=== PATIENT | female | born 1950 | race Caucasian/White ===

== ENCOUNTER 2018-03-29 14:28 | Emergency (ER) | payer MEDICARE, OTHER ==
[~2018-03-29] VITALS: Ht 162.6 cm; Wt 136.1 kg
[~2018-03-29 14:28] MED LIST: ALEN70 PO; AMLO5 PO; BENICAR; CARB200; CARB200 PO; CYAN1000I IM; HYDCHL25; LEVE500 PO; NAPR500; NAPR500 PO; OLME20 PO; OLME40 PO; PRIM250; PRIM250 PO; PRIMIDONE 250 MG PO; SIMV5 PO; TIMO.5OPS OD; TRAV.004OP OD; VITAMIN B 12; [UNRECOGNIZED DRUG - OTHER]
[2018-03-29 16:19] LABS: BASOPHILS ABSOLUTE AUTO 0.07 K/mm3 (0.00-0.23); BASOPHILS PERCENT AUTO 1 % (0-2); EOSINOPHILS ABSOLUTE AUTO 0.21 K/mm3 (0.00-0.68); EOSINOPHILS PERCENT AUTO 3 % (0-6); Hematocrit 40.5 % (33.0-51.0); Hemoglobin 13.4 g/dL (11.5-16.0); IMMATURE GRAN ABSOLUTE AUTO 0.03 K/mm3 (0.00-0.10); IMMATURE GRAN PERCENT AUTO 0 % (0-1); LYMPHOCYTES ABSOLUTE AUTO 1.46 K/mm3 (0.84-5.20); LYMPHOCYTES PERCENT AUTO 21 % (21-46); MONOCYTES ABSOLUTE AUTO 0.57 K/mm3 (0.16-1.47); MONOCYTES PERCENT AUTO 8 % (4-13); Mean Corpuscular HGB 29.3 pg (26.0-34.0); Mean Corpuscular HGB Conc 33.1 g/dL (31.5-36.5); Mean Corpuscular Volume 88 fL (80-100); Mean Platelet Volume 9.4 fL (9.1-12.4); NEUTROPHILS ABSOLUTE AUTO 4.49 K/mm3 (1.96-9.15); NEUTROPHILS PERCENT AUTO 66 % (41-73); Platelet Count 250 K/mm3 (150-400); RDW Standard Deviation 48.7 fL (35.1-46.3); Red Blood Cell Count 4.58 M/mm3 (3.80-5.20); White Blood Cell Count 6.83 K/mm3 (4.00-11.30)
[2018-03-29 16:42] LABS: Alanine Aminotransfer (ALT/SGP 35 U/L (12-78); Albumin, Blood 3.3 g/dL (3.4-5.0); Albumin/Globulin Ratio 0.8 (0.8-1.8); Alk Phos 95 U/L (50-136); Anion Gap 10 mmol/L (6-16); Aspartate Aminotrans (AST/SGOT 23 U/L (12-37); Bilirubin, Total 0.3 mg/dL (0.1-1.0); Blood Urea Nitrogen 12 mg/dL (8-24); Bun/Creatinine Ratio 16.8 (12.0-20.0); CO2, Blood 28 mmol/L (21-32); Calcium, Blood 9.1 mg/dL (8.5-10.1); Chloride, Blood 93 mmol/L (98-108); Creatinine, Blood 0.72 mg/dL (0.40-1.00); Globulin, Blood 4.1 g/dL (2.2-4.0); Glomerular Filtration Rate >60 (60-); Glucose, Blood 103 mg/dL (70-99); Potassium, Blood 3.4 mmol/L (3.5-5.5); Sodium, Blood 131 mmol/L (136-145); Total Protein, Blood 7.4 g/dL (6.4-8.2); Troponin I <0.015 ng/mL (0.000-0.040)
[2018-03-29 17:47] LABS: Base Excess Venous 6.3 mmol/L; Bicarbonate Venous 30.2 mmol/L (24.0-30.0); PCO2 Venous 34.1 mmHg (38-42); PO2 Venous 194 mmHg (38-42); pH Blood Venous 7.54 (7.34-7.37)
== END 2018-03-29 18:53 | disposition home or self-care (01) ==
LOC: ER 14:28
PROVIDERS: Emergency Medicine
DX: G35 Multiple sclerosis (principal); M25.511 Pain in right shoulder; E66.9 Obesity, unspecified; G40.909 Epilepsy, unspecified, not intractable, without status epilepticus; Z88.8 Allergy status to other drugs, medicaments and biological substances; Z79.899 Other long term (current) drug therapy; Z86.73 Personal history of transient ischemic attack (TIA), and cerebral infarction without residual deficits; Z68.43 Body mass index [BMI] 50.0-59.9, adult
CPT/HCPCS: 36415; 70450; 71045; 80053; 82803; 83880; 84443; 84484; 85025; 93005; 93010; 99285-25; J7030

== ENCOUNTER 2018-08-01 14:49 | Emergency (ER) | payer MEDICARE, OTHER ==
[~2018-08-01] VITALS: Ht 162.6 cm; Wt 140.6 kg
== END 2018-08-01 15:51 | disposition home or self-care (01) ==
LOC: ER 14:49
DX: L98.419 Non-pressure chronic ulcer of buttock with unspecified severity (principal); Z88.8 Allergy status to other drugs, medicaments and biological substances; Z79.899 Other long term (current) drug therapy
CPT/HCPCS: 99283

== ENCOUNTER 2018-09-15 00:14 | Day surgery (SDC) | payer MEDICARE, OTHER | END 2018-09-15 22:58 | disposition home or self-care (01) | LOC: WOUND 00:14 | DX: L89.322 Pressure ulcer of left buttock, stage 2 (principal); G40.909 Epilepsy, unspecified, not intractable, without status epilepticus; G35 Multiple sclerosis; G81.90 Hemiplegia, unspecified affecting unspecified side; I10 Essential (primary) hypertension; E78.5 Hyperlipidemia, unspecified; D64.9 Anemia, unspecified; E66.01 Morbid (severe) obesity due to excess calories; Z91.041 Radiographic dye allergy status; Z91.048 Other nonmedicinal substance allergy status; Z88.8 Allergy status to other drugs, medicaments and biological substances; Z68.43 Body mass index [BMI] 50.0-59.9, adult | CPT/HCPCS: G0463 ==

== ENCOUNTER 2018-09-22 10:00 | Day surgery (SDC) | payer MEDICARE, OTHER | END 2018-09-22 22:39 | disposition home or self-care (01) | LOC: WOUND 10:00 | DX: L89.322 Pressure ulcer of left buttock, stage 2 (principal); G35 Multiple sclerosis; G40.909 Epilepsy, unspecified, not intractable, without status epilepticus; E66.01 Morbid (severe) obesity due to excess calories; Z68.43 Body mass index [BMI] 50.0-59.9, adult | CPT/HCPCS: G0463 ==

== ENCOUNTER 2018-09-29 01:06 | Day surgery (SDC) | payer MEDICARE, OTHER | END 2018-09-29 23:23 | disposition home or self-care (01) | LOC: WOUND 01:06 | DX: L89.322 Pressure ulcer of left buttock, stage 2 (principal); G35 Multiple sclerosis; G81.90 Hemiplegia, unspecified affecting unspecified side; D64.9 Anemia, unspecified; I10 Essential (primary) hypertension; I73.9 Peripheral vascular disease, unspecified; G40.909 Epilepsy, unspecified, not intractable, without status epilepticus | CPT/HCPCS: G0463 ==

== ENCOUNTER 2019-01-16 09:25 | Inpatient (IN) | payer MEDICARE, OTHER ==
[~2019-01-16] VITALS: Ht 162.6 cm; Wt 117.5 kg
[2019-01-16] MEDS ORDERED: Pravastatin Sod80 MG PO (10:38)
[2019-01-16] MEDS ORDERED: LOSARTAN-HCTZ1 EAC1 PO (10:39)
[2019-01-16] MEDS ORDERED: FOLI400 PO (10:41)
[2019-01-16] MEDS ORDERED: POTASSIUM99 MG PO (10:41)
[2019-01-16] MEDS ORDERED: PRIM250 PO (10:42)
[2019-01-16] MEDS ORDERED: DORZOLAMIDE 2%10 ML BOTHEYES (10:50)
[2019-01-16] MEDS ORDERED: Super Calcium600 MG PO (10:51)
[2019-01-16] MEDS ORDERED: VITAMIN D35000 UNI1 PO (10:52)
[2019-01-16] MEDS ORDERED: CRANBERRY450 M1 PO ×2 (10:54→11:57)
[2019-01-16] MEDS ORDERED: Fosamax70 MG PO (10:55)
[2019-01-16] MEDS ORDERED: Citrucel500 MG PO (10:56)
[2019-01-16] MEDS ORDERED: Nystatin15 GM TOP (11:56)
[2019-01-16 14:52] LABS: BASOPHILS ABSOLUTE AUTO 0.05 K/mm3 (0.00-0.23); BASOPHILS PERCENT AUTO 1 % (0-2); EOSINOPHILS ABSOLUTE AUTO 0.23 K/mm3 (0.00-0.68); EOSINOPHILS PERCENT AUTO 3 % (0-6); Hematocrit 32.5 % (33.0-51.0); Hemoglobin 10.8 g/dL (11.5-16.0); IMMATURE GRAN ABSOLUTE AUTO 0.04 K/mm3 (0.00-0.10); IMMATURE GRAN PERCENT AUTO 0 % (0-1); LYMPHOCYTES ABSOLUTE AUTO 1.67 K/mm3 (0.84-5.20); LYMPHOCYTES PERCENT AUTO 19 % (21-46); MONOCYTES ABSOLUTE AUTO 0.56 K/mm3 (0.16-1.47); MONOCYTES PERCENT AUTO 6 % (4-13); Mean Corpuscular HGB 29.4 pg (26.0-34.0); Mean Corpuscular HGB Conc 33.2 g/dL (31.5-36.5); Mean Corpuscular Volume 89 fL (80-100); NEUTROPHILS ABSOLUTE AUTO 6.35 K/mm3 (1.96-9.15); NEUTROPHILS PERCENT AUTO 71 % (41-73); Platelet Count 259 K/mm3 (150-400); RDW Coefficient Variation 13.9 % (11.7-14.2); RDW Standard Deviation 44.9 fL (35.1-46.3); Red Blood Cell Count 3.67 M/mm3 (3.80-5.20)
[2019-01-16 15:17] LABS: Alanine Aminotransfer (ALT/SGP 19 U/L (12-78); Albumin, Blood 3.4 g/dL (3.4-5.0); Albumin/Globulin Ratio 1.1 (0.8-1.8); Alk Phos 111 U/L (50-136); Anion Gap 5 mmol/L (6-16); Aspartate Aminotrans (AST/SGOT 15 U/L (12-37); Bilirubin, Total 0.3 mg/dL (0.1-1.0); Blood Urea Nitrogen 10 mg/dL (8-24); CO2, Blood 32 mmol/L (21-32); Calcium, Blood 9.3 mg/dL (8.5-10.1); Chloride, Blood 94 mmol/L (98-108); Creatinine, Blood 0.77 mg/dL (0.40-1.00); Globulin, Blood 3.1 g/dL (2.2-4.0); Glomerular Filtration Rate >60 (60-); Glucose, Blood 111 mg/dL (70-99); Potassium, Blood 3.5 mmol/L (3.5-5.5); Sodium, Blood 131 mmol/L (136-145); Total Protein, Blood 6.5 g/dL (6.4-8.2)
--- NOTE | 2019-01-17 05:19 | NUR ---
SHIFT SUMMARY: PT A&O X4. VS WNL. SPLINT TO LLE CDI. PULSES PALPABLE. CAP REFILL WNL. PT DENIED PAIN T/O SHIFT. VOIDING IN BEDPAN WITH 2 ASSIST FOR TURNS. DRINKING ADEQUATE AMOUNT OF FLUIDS. ALONSO REG DIET. DENIES N/V. PT HAS HX OF MULTIPLE SCLEROSIS AND IS UNABLE TO MOVE LEFT SIDE. WHEELCHAIR AND BEDREST AT BASELINE. PLAN FOR SURGERY ON FRIDAY.
[2019-01-17 05:35] LABS: BASOPHILS ABSOLUTE AUTO 0.07 K/mm3 (0.00-0.23); BASOPHILS PERCENT AUTO 1 % (0-2); EOSINOPHILS ABSOLUTE AUTO 0.31 K/mm3 (0.00-0.68); EOSINOPHILS PERCENT AUTO 5 % (0-6); Hematocrit 31.1 % (33.0-51.0); Hemoglobin 10.3 g/dL (11.5-16.0); IMMATURE GRAN ABSOLUTE AUTO 0.04 K/mm3 (0.00-0.10); IMMATURE GRAN PERCENT AUTO 1 % (0-1); LYMPHOCYTES ABSOLUTE AUTO 1.77 K/mm3 (0.84-5.20); LYMPHOCYTES PERCENT AUTO 26 % (21-46); MONOCYTES ABSOLUTE AUTO 0.61 K/mm3 (0.16-1.47); MONOCYTES PERCENT AUTO 9 % (4-13); Mean Corpuscular HGB 29.8 pg (26.0-34.0); Mean Corpuscular HGB Conc 33.1 g/dL (31.5-36.5); Mean Corpuscular Volume 90 fL (80-100); Mean Platelet Volume 9.1 fL (9.1-12.4); NEUTROPHILS ABSOLUTE AUTO 3.91 K/mm3 (1.96-9.15); NEUTROPHILS PERCENT AUTO 58 % (41-73); Platelet Count 232 K/mm3 (150-400); RDW Coefficient Variation 13.9 % (11.7-14.2); RDW Standard Deviation 45.6 fL (35.1-46.3); Red Blood Cell Count 3.46 M/mm3 (3.80-5.20); White Blood Cell Count 6.71 K/mm3 (4.00-11.30)
[2019-01-17 05:55] LABS: Anion Gap 6 mmol/L (6-16); Blood Urea Nitrogen 9 mg/dL (8-24); Bun/Creatinine Ratio 12.5 (12.0-20.0); CO2, Blood 30 mmol/L (21-32); Calcium, Blood 8.8 mg/dL (8.5-10.1); Chloride, Blood 93 mmol/L (98-108); Creatinine, Blood 0.72 mg/dL (0.40-1.00); Glomerular Filtration Rate >60 (60-); Glucose, Blood 112 mg/dL (70-99); Potassium, Blood 3.3 mmol/L (3.5-5.5); Sodium, Blood 129 mmol/L (136-145)
--- NOTE | 2019-01-17 13:21 | NUR ---
DR ALEXISTRATE TO SEE PT.
--- NOTE | 2019-01-17 15:52 | NUR ---
DR KRUEGER HERE TO SEE PT. FAMILY HERE.
--- NOTE | 2019-01-17 18:42 | NUR ---
SHIFT SUMMARY PT EATING AND DRINKING WELL. PT BEEN REPOSITIONED AND ASSISTED WITH ADL'S PRN MULT TIMES TODAY. PT MED FOR PAIN PRN. FAMILY IN ROOM WHEN DR KRUEGER WAS IN TO SEE PT. PT USING CALL LIGHT APPR. PT TO BE NPO AFTER MIDNIGHT. HEPARIN HELD TONIGHT PER DR KRUEGER AND DR SWANN.
[2019-01-18 04:09] LABS: BASOPHILS ABSOLUTE AUTO 0.06 K/mm3 (0.00-0.23); BASOPHILS PERCENT AUTO 1 % (0-2); EOSINOPHILS ABSOLUTE AUTO 0.32 K/mm3 (0.00-0.68); EOSINOPHILS PERCENT AUTO 4 % (0-6); Hemoglobin 9.7 g/dL (11.5-16.0); IMMATURE GRAN ABSOLUTE AUTO 0.04 K/mm3 (0.00-0.10); IMMATURE GRAN PERCENT AUTO 1 % (0-1); LYMPHOCYTES ABSOLUTE AUTO 2.25 K/mm3 (0.84-5.20); LYMPHOCYTES PERCENT AUTO 31 % (21-46); MONOCYTES ABSOLUTE AUTO 0.68 K/mm3 (0.16-1.47); MONOCYTES PERCENT AUTO 9 % (4-13); Mean Corpuscular HGB 29.8 pg (26.0-34.0); Mean Corpuscular HGB Conc 33.4 g/dL (31.5-36.5); Mean Corpuscular Volume 89 fL (80-100); NEUTROPHILS ABSOLUTE AUTO 3.97 K/mm3 (1.96-9.15); NEUTROPHILS PERCENT AUTO 54 % (41-73); Platelet Count 230 K/mm3 (150-400); RDW Coefficient Variation 13.4 % (11.7-14.2); RDW Standard Deviation 43.9 fL (35.1-46.3); Red Blood Cell Count 3.26 M/mm3 (3.80-5.20); White Blood Cell Count 7.32 K/mm3 (4.00-11.30)
[2019-01-18 04:24] LABS: Anion Gap 9 mmol/L (6-16); Blood Urea Nitrogen 9 mg/dL (8-24); Bun/Creatinine Ratio 13.6 (12.0-20.0); CO2, Blood 27 mmol/L (21-32); Calcium, Blood 8.2 mg/dL (8.5-10.1); Chloride, Blood 89 mmol/L (98-108); Creatinine, Blood 0.66 mg/dL (0.40-1.00); Glomerular Filtration Rate >60 (60-); Glucose, Blood 109 mg/dL (70-99); Potassium, Blood 3.3 mmol/L (3.5-5.5); Sodium, Blood 125 mmol/L (136-145)
--- NOTE | 2019-01-18 06:14 | NUR ---
SHIFT SUMMARY: PT HAS DONE WELL THIS SHIFT. PAIN MANAGED WITH TYLENOL PER EMAR. PT USING BEDPAN WITH 2 ASSIST. PT ABLE TO ASSIST WITH TURNS. VOIDING WELL. PT HAS BEEN NPO SINCE MIDNIGHT FOR POSSIBLE SURGERY. SPLINT TO LLE CDI. PULSES PALPABLE, CAP REFILL WNL.
--- NOTE | 2019-01-18 19:50 | NUR ---
SHIFT SUMMARY PAIN MANAGED WITH PO PAIN MEDICATION. PT NON-SURGICAL AT THIS TIME. PT IS A 2 PERSON ASSIST TO USE THE BEDPAN . BUCKS TRACTION IN PLACE. VSS. REPORT GIVEN TO LYN PEARSON.
[2019-01-19 04:34] LABS: BASOPHILS ABSOLUTE AUTO 0.06 K/mm3 (0.00-0.23); BASOPHILS PERCENT AUTO 1 % (0-2); EOSINOPHILS ABSOLUTE AUTO 0.26 K/mm3 (0.00-0.68); EOSINOPHILS PERCENT AUTO 4 % (0-6); Hematocrit 27.4 % (33.0-51.0); IMMATURE GRAN ABSOLUTE AUTO 0.05 K/mm3 (0.00-0.10); IMMATURE GRAN PERCENT AUTO 1 % (0-1); LYMPHOCYTES PERCENT AUTO 30 % (21-46); MONOCYTES ABSOLUTE AUTO 0.61 K/mm3 (0.16-1.47); MONOCYTES PERCENT AUTO 9 % (4-13); Mean Corpuscular HGB 28.8 pg (26.0-34.0); Mean Corpuscular HGB Conc 32.8 g/dL (31.5-36.5); Mean Corpuscular Volume 88 fL (80-100); Mean Platelet Volume 9.2 fL (9.1-12.4); NEUTROPHILS ABSOLUTE AUTO 3.89 K/mm3 (1.96-9.15); NEUTROPHILS PERCENT AUTO 56 % (41-73); Platelet Count 255 K/mm3 (150-400); RDW Coefficient Variation 13.8 % (11.7-14.2); RDW Standard Deviation 43.9 fL (35.1-46.3); Red Blood Cell Count 3.13 M/mm3 (3.80-5.20); White Blood Cell Count 6.97 K/mm3 (4.00-11.30)
[2019-01-19 04:49] LABS: Anion Gap 5 mmol/L (6-16); Blood Urea Nitrogen 10 mg/dL (8-24); Bun/Creatinine Ratio 13.6 (12.0-20.0); CO2, Blood 28 mmol/L (21-32); Calcium, Blood 8.5 mg/dL (8.5-10.1); Chloride, Blood 99 mmol/L (98-108); Creatinine, Blood 0.74 mg/dL (0.40-1.00); Glomerular Filtration Rate >60 (60-); Glucose, Blood 114 mg/dL (70-99); Potassium, Blood 3.8 mmol/L (3.5-5.5); Sodium, Blood 132 mmol/L (136-145)
--- NOTE | 2019-01-19 06:41 | NUR ---
SUMMARY PTS DAUGHTER SPOKE WITH DR MAX REGARDING POSSIBILITIES OF OR VS NO OR.SEE DR NOTES.BUCKS TRACTION IN PLACE TONIGHT.NA AND POTASSIUM IMPROVING.
--- NOTE | 2019-01-19 19:49 | NUR ---
SHIFT SUMMARY PT IS STILL UNDECIDED REGARDING SURGERY. PT IS ABLE TO REPOSITION IN BED WELL WITH 2 ASSIST. PT USING BEDPAN FREQUENTLY. PAIN HAS BEEN MINIMAL THIS SHIFT. VSS. REPORT GIVEN TO LYN PEARSON.
--- NOTE | 2019-01-20 04:00 | NUR ---
NO CHANGES SINCE START OF SHIFT. SAFETY MEASURES IN PLACE. HAND OFF GIVEN TO Christopher VITAL RN USING SBAR.
[2019-01-20 04:33] LABS: Hematocrit 28.4 % (33.0-51.0); Hemoglobin 9.1 g/dL (11.5-16.0); Mean Corpuscular HGB 29.2 pg (26.0-34.0); Mean Corpuscular Volume 91 fL (80-100); Mean Platelet Volume 9.5 fL (9.1-12.4); Platelet Count 289 K/mm3 (150-400); RDW Coefficient Variation 14.2 % (11.7-14.2); RDW Standard Deviation 47.6 fL (35.1-46.3); Red Blood Cell Count 3.12 M/mm3 (3.80-5.20); White Blood Cell Count 8.19 K/mm3 (4.00-11.30)
[2019-01-20 04:55] LABS: Anion Gap 6 mmol/L (6-16); Blood Urea Nitrogen 11 mg/dL (8-24); Bun/Creatinine Ratio 13.9 (12.0-20.0); CO2, Blood 27 mmol/L (21-32); Calcium, Blood 8.5 mg/dL (8.5-10.1); Chloride, Blood 102 mmol/L (98-108); Creatinine, Blood 0.79 mg/dL (0.40-1.00); Glomerular Filtration Rate >60 (60-); Glucose, Blood 112 mg/dL (70-99); Potassium, Blood 3.8 mmol/L (3.5-5.5); Sodium, Blood 135 mmol/L (136-145)
--- NOTE | 2019-01-20 10:56 | NUR ---
DR ALEXISTRATE HERE EARLIER, REPORTS OK TO HOLD HEPARIN.
--- NOTE | 2019-01-20 17:21 | NUR ---
REPORT GIVEN TO DES AT [facility]. PT VOIDED. PT NOTIFED FAMILY. PT BEEN MED WITH SIP OF WATER.
--- NOTE | 2019-01-20 17:56 | NUR ---
TRANSPORT HERE TO GET PT. PT TRANSFERRED TO [facility] WITH MULT ASSIST. PT'S BELONGINGS SENT WITH PT. REPORT BEEN GIVEN. PAPERWORK INCLUDING FILMS BEEN SENT WITH TRANSPORT. PT REPORTED NOTIFYING FAMILY.
[2019-04-09] MEDS ORDERED: BACI500TO TOP (13:08)
== END 2019-01-20 17:57 | disposition short-term general hospital (02) | DRG 534 ==
LOC: ER 09:25 → SURS 12:40
PROVIDERS: ADMIT Family Medicine
DX: S72.402A Unspecified fracture of lower end of left femur, initial encounter for closed fracture (principal); E87.1 Hypo-osmolality and hyponatremia; E87.6 Hypokalemia; I10 Essential (primary) hypertension; G35 Multiple sclerosis; E78.5 Hyperlipidemia, unspecified; Z99.3 Dependence on wheelchair; G89.29 Other chronic pain; M54.9 Dorsalgia, unspecified; G40.909 Epilepsy, unspecified, not intractable, without status epilepticus; E66.01 Morbid (severe) obesity due to excess calories; M81.0 Age-related osteoporosis without current pathological fracture; Z79.83 Long term (current) use of bisphosphonates; Z79.899 Other long term (current) drug therapy
CPT/HCPCS: 29505; 36415; 73502; 73560-LT; 73600; 73700; 76377; 80048; 80053; 85025; 85027; 99285-25; A9270; C1751; J1644; J3480; J7030

== ENCOUNTER 2019-03-17 15:56 | Emergency (ER) | payer MEDICARE, OTHER ==
[~2019-03-17] VITALS: Ht 162.6 cm; Wt 136.1 kg
[~2019-03-17 15:56] MED LIST changes: +CRANBERRY450 M1 PO; +Citrucel500 MG PO; +DORZOLAMIDE 2%10 ML BOTHEYES; +FOLI400 PO; +Fosamax70 MG PO; +LOSARTAN-HCTZ1 EAC1 PO; +Nystatin15 GM TOP; +POTASSIUM99 MG PO; +Pravastatin Sod80 MG PO; +Super Calcium600 MG PO; +VITAMIN D35000 UNI1 PO
[2019-03-17 16:36] LABS: Source, Urine Clean Catch
[2019-03-17 16:42] LABS: BASOPHILS ABSOLUTE AUTO 0.06 K/mm3 (0.00-0.23); BASOPHILS PERCENT AUTO 1 % (0-2); EOSINOPHILS PERCENT AUTO 5 % (0-6); Hematocrit 40.5 % (33.0-51.0); Hemoglobin 13.1 g/dL (11.5-16.0); IMMATURE GRAN ABSOLUTE AUTO 0.02 K/mm3 (0.00-0.10); IMMATURE GRAN PERCENT AUTO 0 % (0-1); LYMPHOCYTES ABSOLUTE AUTO 1.63 K/mm3 (0.84-5.20); LYMPHOCYTES PERCENT AUTO 27 % (21-46); MONOCYTES ABSOLUTE AUTO 0.38 K/mm3 (0.16-1.47); MONOCYTES PERCENT AUTO 6 % (4-13); Mean Corpuscular HGB 26.3 pg (26.0-34.0); Mean Corpuscular HGB Conc 32.3 g/dL (31.5-36.5); Mean Corpuscular Volume 81 fL (80-100); NEUTROPHILS ABSOLUTE AUTO 3.76 K/mm3 (1.96-9.15); NEUTROPHILS PERCENT AUTO 61 % (41-73); RDW Standard Deviation 41.3 fL (35.1-46.3); Red Blood Cell Count 4.99 M/mm3 (3.80-5.20); White Blood Cell Count 6.15 K/mm3 (4.00-11.30)
[2019-03-17 16:47] LABS: Bilirubin, Urine Neg (Neg); Blood, Urine 1+ (Neg); Glucose Qualitative, Urine Neg (Neg); Ketones, Urine Neg (Neg); Leukocyte Esterase, Urine 3+ (Neg); Nitrite, Urine Pos (Neg); Protein, Urine Neg (Neg); Urobilinogen, Urine NORM (Normal)
[2019-03-17 16:50] LABS: Alanine Aminotransfer (ALT/SGP 19 U/L (12-78); Albumin, Blood 3.3 g/dL (3.4-5.0); Albumin/Globulin Ratio 0.9 (0.8-1.8); Alk Phos 124 U/L (50-136); Anion Gap 7 mmol/L (6-16); Aspartate Aminotrans (AST/SGOT 16 U/L (12-37); Bilirubin, Total 0.2 mg/dL (0.1-1.0); Blood Urea Nitrogen 13 mg/dL (8-24); Bun/Creatinine Ratio 22.3 (12.0-20.0); CO2, Blood 26 mmol/L (21-32); Calcium, Blood 9.1 mg/dL (8.5-10.1); Chloride, Blood 100 mmol/L (98-108); Creatinine, Blood 0.58 mg/dL (0.40-1.00); Globulin, Blood 3.5 g/dL (2.2-4.0); Glomerular Filtration Rate >60 (60-); Glucose, Blood 95 mg/dL (70-99); Potassium, Blood 3.9 mmol/L (3.5-5.5); Sodium, Blood 133 mmol/L (136-145); Total Protein, Blood 6.8 g/dL (6.4-8.2)
[2019-03-17 16:53] LABS: Appearance, Urine Hazy (Clear); Color, Urine Yellow (P-Yellow)
[2019-03-17 16:54] LABS: White Blood Cells, Urine 25-50 /hpf (0-5)
[2019-03-17 16:55] LABS: Bacteria Many /hpf; Red Blood Cells, Urine 0-2 /hpf (0-2); Squamous Epithelial Cells Few /hpf (Few)
[2019-03-17 16:56] LABS: Mean Platelet Volume 8.9 fL (9.1-12.4); Platelet Count 272 K/mm3 (150-400)
[2019-03-17] MEDS ORDERED: CEFP200 PO (18:01)
[2019-04-09] MEDS ORDERED: BACI500TO TOP (13:08)
== END 2019-03-17 18:45 | disposition home or self-care (01) ==
LOC: ER 15:56
PROVIDERS: Emergency Medicine
DX: N39.0 Urinary tract infection, site not specified (principal); G40.909 Epilepsy, unspecified, not intractable, without status epilepticus; G35 Multiple sclerosis; Z88.8 Allergy status to other drugs, medicaments and biological substances; Z79.899 Other long term (current) drug therapy
CPT/HCPCS: 36415; 80053; 81001; 85025; 87077; 87086; 87186; 93005; 93010; 99285-25; A9270-GY

== ENCOUNTER 2019-04-15 11:38 | Inpatient (IN) | payer MEDICARE, OTHER ==
[~2019-04-15] VITALS: Ht 162.6 cm; Wt 115.6 kg
[~2019-04-15 11:38] MED LIST changes: +BACI500TO TOP; +CEFP200 PO
[2019-04-15] MEDS ORDERED: LOSA25 PO (13:05)
[2019-04-15] MEDS ORDERED: POTCHL20ER PO (13:06)
[2019-04-15] MEDS ORDERED: Florastor250 MG PO (13:07)
[2019-04-15] MEDS ORDERED: TRAM50 PO (13:08)
[2019-04-15] MEDS ORDERED: BACLOFEN5 MG PO (13:08)
[2019-04-15] MEDS ORDERED: SODCHL1 PO (13:08)
--- NOTE | 2019-04-15 13:52 | NUR ---
Assumed care of patient A/Ox3. Received report from MICHEL Rivera. Patient arrived via gurney transported by distribution tech Lukas. Received in report that pt is max assist, slide over to medical bed. No c/o pain at this time. Denies N/V. Pt oriented to call light system and reminded about fall protocols. Pt settled in bed.
[2019-04-15 13:54] LABS: Alanine Aminotransfer (ALT/SGP 25 U/L (12-78); Albumin, Blood 3.1 g/dL (3.4-5.0); Albumin/Globulin Ratio 0.8 (0.8-1.8); Alk Phos 117 U/L (50-136); Anion Gap 4 mmol/L (6-16); Aspartate Aminotrans (AST/SGOT 22 U/L (12-37); Bilirubin, Total 0.2 mg/dL (0.1-1.0); Blood Urea Nitrogen 10 mg/dL (8-24); Bun/Creatinine Ratio 18.5 (12.0-20.0); CO2, Blood 24 mmol/L (21-32); Calcium, Blood 9.3 mg/dL (8.5-10.1); Chloride, Blood 103 mmol/L (98-108); Creatinine, Blood 0.54 mg/dL (0.40-1.00); Glomerular Filtration Rate >60 (60-); Glucose, Blood 96 mg/dL (70-99); Potassium, Blood 4.5 mmol/L (3.5-5.5); Sodium, Blood 131 mmol/L (136-145); Total Protein, Blood 7.1 g/dL (6.4-8.2)
[2019-04-15 14:48] LABS: BASOPHILS ABSOLUTE AUTO 0.05 K/mm3 (0.00-0.23); BASOPHILS PERCENT AUTO 1 % (0-2); EOSINOPHILS ABSOLUTE AUTO 0.23 K/mm3 (0.00-0.68); EOSINOPHILS PERCENT AUTO 4 % (0-6); Hematocrit 40.7 % (33.0-51.0); Hemoglobin 12.7 g/dL (11.5-16.0); IMMATURE GRAN ABSOLUTE AUTO 0.02 K/mm3 (0.00-0.10); IMMATURE GRAN PERCENT AUTO 0 % (0-1); LYMPHOCYTES ABSOLUTE AUTO 1.74 K/mm3 (0.84-5.20); LYMPHOCYTES PERCENT AUTO 28 % (21-46); MONOCYTES ABSOLUTE AUTO 0.38 K/mm3 (0.16-1.47); MONOCYTES PERCENT AUTO 6 % (4-13); Mean Corpuscular HGB 25.6 pg (26.0-34.0); Mean Corpuscular HGB Conc 31.2 g/dL (31.5-36.5); Mean Corpuscular Volume 82 fL (80-100); Mean Platelet Volume 9.1 fL (9.1-12.4); NEUTROPHILS ABSOLUTE AUTO 3.77 K/mm3 (1.96-9.15); NEUTROPHILS PERCENT AUTO 61 % (41-73); Platelet Count 333 K/mm3 (150-400); RDW Coefficient Variation 15.9 % (11.7-14.2); RDW Standard Deviation 47.1 fL (35.1-46.3); Red Blood Cell Count 4.97 M/mm3 (3.80-5.20); White Blood Cell Count 6.19 K/mm3 (4.00-11.30)
[2019-04-15 15:27] LABS: International Normalized Ratio 0.98; Prothrombin Time Results 10.4 Sec (9.7-11.5)
--- NOTE | 2019-04-15 18:21 | NUR ---
Shift Summary A/Ox4. Pleasant and cooperative with care. Calls appropriately for needs. Continent of bowel and bladder, bedpan c 2 assist. Pt scheduled to have I&D to left thigh c Kloepper tomorrow afternoon, NPO after midnight tonight. VSS, afebrile. No other acute chnages this shift.
--- NOTE | 2019-04-16 05:06 | NUR ---
SHIFT SUMMARY NO ACUTE EVENTS OVERNIGHT. AAOX4. BEDREST. NPO AT MIGNIGHT EXCEPT FOR SIPS OF WATER WITH MEDS. BEDPAN WITH 1 PERSON ASSIST. VSS. LEFT OUTER THIGH SURGICAL SITE OBSERVED TO BE RED AND WARM. NO DRAINAGE NOTED. WILL CONTINUE TO MONITOR AND REPORT TO ONCOMING SHIFT.
--- NOTE | 2019-04-16 12:49 | NUR ---
Patient is lying in bed and alert. Patient tells me of her life long medical issues and all that she has overcome in life. Patient also shared about her family unit complications and about her Tenriism morteza. I listen empathically, encourage self care, provide companionship and a calming presence. Patient responds well and shows signs of an elevated mood. I will continue to remain available to patient and family.
--- NOTE | 2019-04-16 16:26 | NUR ---
History, Chart, Medications and Allergies reviewed before start of procedure. Lungs clear T/O to Auscultation. Patient confirms NPO status and agrees with scheduled surgery.
--- NOTE | 2019-04-16 16:28 | NUR ---
REPORT TO PABLO RN TO ASSUME CARE OF PATIENT.
--- NOTE | 2019-04-16 17:43 | NUR ---
04/16/19 1743 Geoff Taylor PT DID NOT HAVE PAS STOCKINGS IN PLACE R/T PROCEDURE.
--- NOTE | 2019-04-16 17:55 | NUR ---
DENIES PAIN OR [place] PT IS EAGER TO EAT DINNER STATES SHE HAS MINIMAL MOVEMENT ON LEFT SIDE SINCE 1975. NO MOVEMENT OF LEFT SIDE NOTED . PLEASANT TALKATIVE
--- NOTE | 2019-04-16 18:14 | NUR ---
PT WENT FOR I&D THIS EVENING SAMPLE SENT TO THE LAB OF [facility]. PER REPORT FROM SURGICAL DATA PROCESSING SPECIALIST NIKUNJ PT AWOKE ASKING FOR FOOD. PT DINNER WAS SAVED FOR HER. PT ON HER WAY BACK TO MEDICAL FLOOR WITH A NEW IV IN HER FOOT PER REPORT. SPOKE TO BRIDGE MECHANIC ABOUT THE PLACEMENT OF A POWER GLIDE.
--- NOTE | 2019-04-17 05:07 | NUR ---
SHIFT SUMMARY NO ACUTE EVENTS OVERNIGHT. PATIENT LEPT THROUGHOUT SHIFT. WOUNDVAC ON LEFT OUTER LOWER THIGH INTACT. L SIDE HEMIPARESIS S/T MS. PATIENT CALLS APPROPRIATELY AND REQUESTS BEDPAN PRN. POWERGLIDE PLACED IN STACY. RIGHT FOOT IV REMOVED. WILL CONTINUE TO MONITOR
[2019-04-17 05:40] LABS: BASOPHILS ABSOLUTE AUTO 0.02 K/mm3 (0.00-0.23); BASOPHILS PERCENT AUTO 0 % (0-2); EOSINOPHILS ABSOLUTE AUTO 0.03 K/mm3 (0.00-0.68); EOSINOPHILS PERCENT AUTO 1 % (0-6); Hematocrit 36.7 % (33.0-51.0); Hemoglobin 11.8 g/dL (11.5-16.0); IMMATURE GRAN ABSOLUTE AUTO 0.03 K/mm3 (0.00-0.10); IMMATURE GRAN PERCENT AUTO 1 % (0-1); LYMPHOCYTES ABSOLUTE AUTO 1.64 K/mm3 (0.84-5.20); LYMPHOCYTES PERCENT AUTO 25 % (21-46); MONOCYTES ABSOLUTE AUTO 0.34 K/mm3 (0.16-1.47); MONOCYTES PERCENT AUTO 5 % (4-13); Mean Corpuscular HGB 26.5 pg (26.0-34.0); Mean Corpuscular HGB Conc 32.2 g/dL (31.5-36.5); Mean Corpuscular Volume 82 fL (80-100); Mean Platelet Volume 9.2 fL (9.1-12.4); NEUTROPHILS ABSOLUTE AUTO 4.53 K/mm3 (1.96-9.15); NEUTROPHILS PERCENT AUTO 69 % (41-73); Platelet Count 353 K/mm3 (150-400); RDW Coefficient Variation 15.6 % (11.7-14.2); RDW Standard Deviation 46.5 fL (35.1-46.3); Red Blood Cell Count 4.46 M/mm3 (3.80-5.20); White Blood Cell Count 6.59 K/mm3 (4.00-11.30)
--- NOTE | 2019-04-17 16:23 | NUR ---
ALERT. ORIENTED. PLEASANT. COOPERATIVE. USES BEDPAN. DOES NOT WANT TO BE TURNED ON RT SIDE. WOUND VAC LEFT LATERAL THIGH W/GOOD SUCTION, BUT VERY LITTLE OUTPUT. DENIES N/V OR PAIN. UNLABORED RESPIRATIONS. ABLE TO MAKE NEEDS KNOWN. POWERGLIDE PATENT. BED IN LOW POSITION. WCTM.
--- NOTE | 2019-04-18 04:36 | NUR ---
SHIFT SUMMARY PT W/HX OF LEFT SIDED MS. FOLLOWING A TOTAL HIP REPLACEMENT SHE INCURRED INFECTION ON/AROUND THE IMPLANT. AN I&D PROCEDURE WAS PERFORMED ON 04/[address] LAU AND A WOUND VAC WAS PLACED. IV ANTIBIOTICS ADMINISTERED ORDERED. LR INFUSION DC'D EARLIER TODAY. PT MOBILITY IS SEVERELY IMPACTED BY HER HX OF MS AND HER CURRENT PROBLEM. SHE IS MOSTLY BEDBOUND HERE, BUT HAS REQUIRED A LIFT TO GO FROM BED TO HER ELECTRIC CHAIR IN THE PAST. PT HAS NOT REQUESTED PAIN MEDICATION THIS SHIFT.
--- NOTE | 2019-04-18 15:30 | NUR ---
SHIFT SUMMARY PATIENT IS ALERT AND ORIENTED. ABLE TO MAKE NEEDS KNOWN. CONTINUES ON IV ABX WITHOUT ANY S/SX OF ADVERSE REACTIONS NOTED OR REPORTED. WOUND VAC REMAINS TO L UPPER LEG, CDI. NO ACUTE CHANGES TO REPORT ON AT THIS TIME. WILL CONTINUE TO MONITOR AND PROVIDE CARE AT THIS TIME.
--- NOTE | 2019-04-19 03:59 | NUR ---
SHIFT SUMMARY PLAN IS FOR PT TO DC TO [facility]. POST HIP REPLACEMENT SHE INCURRED AN INFECTION - LEFT HIP/THIGH. I&D PROCEDURE PERFORMED. WOUND VAC IS IN PLACE AND PATENT, MINIMAL DRAINAGE. BEDBOUND. REQUIRES LIFT FOR TRANSFERS. LEFT SIDED PARALYSIS R/T MS. PT USES A BEDPAN AND CALLS APPROPRIATELY. SHE APPEARS TO INGEST LARGE AMOUNTS OF WATER. A&O X4. NO OTHER ISSUES OF NOTE.
--- NOTE | 2019-04-19 09:40 | NUR ---
SPOKE TO SANTOS, DOUBLE SPINDLE SHAPER OPERATOR, ABOUT PATIENT'S WOUND VAC FOR DISCHARGE TO [facility] TODAY. SHE STATED THAT [facility] HAS THEIR OWN VAC'S THAT THEY USE AND TO JUST UNPLUG THE MACHINE FROM THE PATIENT RIGHT BEFORE SHE DISCHARGES THE HOSPITAL. PATIENT UPDATED ON THIS.
--- NOTE | 2019-04-19 10:33 | NUR ---
CHANGED WOUND VAC TO L THIGH PER DR DENNY ORDERS. VAC SUCTIONING AT 120 CONTINUOUS. PATIENT TOLERATED PROCEDURE WELL. WOUND MEASURES 9.8 x 2.2 x 2.7cm. SMALL AMOUNT OF SS DRAINAGE.
--- NOTE | 2019-04-19 16:28 | NUR ---
SHIFT SUMMARY THE PATIENT HAS BEEN STABLE THIS SHIFT. CONTINUES ON IV ABX WITHOUT S/SX OF ADVERSE REACTIONS NOTED OR REPORTED. WOUND VAC CHANGED THIS MORNING AND IS SUCTIONING CONT AT 120 PER ORDERS. THERE HAVE BEEN NO ACUTE CHANGES TO REPORT ON THIS SHIFT. WILL CONTINUE TO MONITOR AND PROVIDE CARE NEEDED.
--- NOTE | 2019-04-20 06:17 | NUR ---
SHIFT SUMMARY AOX4. DENIES SOB, N/V. REPORTS PAIN IN L THIGH, YET DENIES THE NEED FOR ANY PAIN MEDICATION, STATES SHE DOESN'T TAKE ANYTHING FOR PAIN. WOUND VAC IN PLACE ONLY SCANT AMOUNT SEROSANGUINOUS DRAINAGE IN CANISTER. DRESSING INTACT & CHANGED YESTERDAY 04/20/19 PER DAY SHIFT RN. HAS L SIDED WEAKNESS R/T MS PER PATIENT. CALL LIGHT IN REACH & I WILL CONTINUE TO MONITOR.
--- NOTE | 2019-04-20 12:37 | NUR ---
PATIENT IS EATING LUNCH AT THIS TIME. SHE JUST FINISHED WORKING WITH PHYSICAL THERAPY. HER BASELINE IS WHEELCHAIR BOUND. PHYSICAL THERAPY SAID SHE HASNT BEEN ABLE TO TRANSFER ON HER RIGHT LEG FOR SOME TIME NOW. PATIENT HAS REFUSED TO BE REPOSITIONED WITH PILLOWS IN BED. SHE USES THE BEDPAN AT HER REQUEST. SHE ROLLS IN BED WITH ASSISTANCE. HE WAS GIVEN A BED BATH THIS MORNING AND HER HAIR WAS BRUSHED AND BRAIDED. WOUND VAC IS WORKING APPROPRIATLEY, WITH CLEAR DRAINAGE. WILL CONTINUE TO MONITOR.
[2019-04-20] MEDS ORDERED: LEVOFLOXACIN750 MG PO (14:45)
--- NOTE | 2019-04-20 15:54 | NUR ---
[facility] PICKED UP THE PATIENT AT 15:54. THE WOUND VAC WAS UNHOOKED FROM THE PATIENT AND LEFT IN THE HOSPIUTAL ROOM. SHE LEFT WITH A POWERGLIDE. [facility]
== END 2019-04-20 15:49 | DRG 857 ==
LOC: ER 11:38 → MEDS 11:39 → ER 11:39 → MEDS 13:32 → ENPENDDIS 04-20 13:32 → MEDS 04-20 15:49
PROVIDERS: Nurse Practitioner Acute Care; Orthopaedic Surgery; ADMIT Family Medicine
PROC: 0JDM0ZZ Extraction of Left Upper Leg Subcutaneous Tissue and Fascia, Open Approach (ICD-10-PCS; principal; 2019-04-17)
DX: T81.42XA Infection following a procedure, deep incisional surgical site, initial encounter (principal); Z68.41 Body mass index [BMI] 40.0-44.9, adult; G40.909 Epilepsy, unspecified, not intractable, without status epilepticus; G35 Multiple sclerosis; Z74.01 Bed confinement status; M19.90 Unspecified osteoarthritis, unspecified site; E66.9 Obesity, unspecified; M81.0 Age-related osteoporosis without current pathological fracture; B96.89 Other specified bacterial agents as the cause of diseases classified elsewhere; I10 Essential (primary) hypertension
CPT/HCPCS: 36415; 80053; 85025; 85610; 85651; 86140; 87070; 87075; 87077; 87186; 87205; 97110; 97162; 97166; 97530; 99284; J0690; J1100; J1956; J2250; J2370; J2405; J2704; J2710; J3010; J7030; J7050; J7120

== ENCOUNTER → 2019-08-19 | Outpatient (CLI) | payer MEDICARE, OTHER ==
[~2019-08-19] MED LIST changes: +BACLOFEN5 MG PO; +Florastor250 MG PO; +LEVOFLOXACIN750 MG PO; +LOSA25 PO; +POTCHL20ER PO; +SODCHL1 PO; +TRAM50 PO
[2019-08-19 13:05] LABS: Anion Gap 2 mmol/L (6-16); Blood Urea Nitrogen 16 mg/dL (8-24); Bun/Creatinine Ratio 36.4 (12.0-20.0); CO2, Blood 29 mmol/L (21-32); Calcium, Blood 8.9 mg/dL (8.5-10.1); Chloride, Blood 101 mmol/L (98-108); Creatinine, Blood 0.44 mg/dL (0.40-1.00); Glomerular Filtration Rate >60 (60-); Glucose, Blood 109 mg/dL (70-99); Sodium, Blood 132 mmol/L (136-145)
== END ==
LOC: LAB UVN 08:40 → EDSTATUS 15:37
PROVIDERS: Family Medicine
DX: I10 Essential (primary) hypertension (principal)
CPT/HCPCS: 36415; 80048

== ENCOUNTER → 2019-08-24 | Outpatient (CLI) | payer MEDICARE, OTHER ==
[2019-08-24 11:50] LABS: Anion Gap 9 mmol/L (6-16); Blood Urea Nitrogen 15 mg/dL (8-24); Bun/Creatinine Ratio 28.2 (12.0-20.0); CO2, Blood 25 mmol/L (21-32); Calcium, Blood 8.9 mg/dL (8.5-10.1); Chloride, Blood 102 mmol/L (98-108); Creatinine, Blood 0.53 mg/dL (0.40-1.00); Glomerular Filtration Rate >60 (60-); Glucose, Blood 97 mg/dL (70-99); Potassium, Blood 4.1 mmol/L (3.5-5.5); Sodium, Blood 136 mmol/L (136-145)
== END | disposition home or self-care (01) ==
LOC: LAB UVN 08:55 → EDSTATUS 13:39
PROVIDERS: Family Medicine
DX: E87.1 Hypo-osmolality and hyponatremia (principal)
CPT/HCPCS: 36415; 80048

== ENCOUNTER → 2019-09-23 | Outpatient (CLI) | payer MEDICARE, OTHER ==
[2019-09-23 04:57] LABS: Anion Gap 6 mmol/L (6-16); Blood Urea Nitrogen 16 mg/dL (8-24); Bun/Creatinine Ratio 29.3 (12.0-20.0); CO2, Blood 27 mmol/L (21-32); Calcium, Blood 8.6 mg/dL (8.5-10.1); Chloride, Blood 101 mmol/L (98-108); Creatinine, Blood 0.55 mg/dL (0.40-1.00); Glomerular Filtration Rate >60 (60-); Glucose, Blood 97 mg/dL (70-99); Potassium, Blood 4.6 mmol/L (3.5-5.5); Sodium, Blood 134 mmol/L (136-145)
== END | disposition home or self-care (01) ==
LOC: LAB UVN 04:31 → EDSTATUS 11:11
PROVIDERS: Family Medicine
DX: E87.1 Hypo-osmolality and hyponatremia (principal)
CPT/HCPCS: 80048

== ENCOUNTER → 2020-07-02 | Outpatient (CLI) | payer MEDICARE, OTHER ==
[~2020-07-02] MED LIST changes: +ALBU90OI INH; +Acetaminophen325 M1 PO; +BACL10 PO; -BACLOFEN5 MG PO; +CALCIUM CARBON650 MG PO; +CEFU500T30 PO; +COSOPT EYE DROP10 ML BOTHEYES; +DONE5 PO; -DORZOLAMIDE 2%10 ML BOTHEYES; -LEVE500 PO; +LEVETIRACETAM1000 M1 PO; +LISI20 PO; +NYSTATIN-TRIAMC15 GM TOP; -Nystatin15 GM TOP; +ONDA4ODT MM; +PIPERACIL TAZO IV; +PROM25 PO; -Super Calcium600 MG PO; +VISBIOME 112.51 EACH PO
[2020-07-02 23:51] LABS: BASOPHILS ABSOLUTE AUTO 0.05 K/mm3 (0.00-0.23); BASOPHILS PERCENT AUTO 1 % (0-2); EOSINOPHILS ABSOLUTE AUTO 0.31 K/mm3 (0.00-0.68); EOSINOPHILS PERCENT AUTO 3 % (0-6); Hematocrit 43.9 % (33.0-51.0); Hemoglobin 14.6 g/dL (11.5-16.0); IMMATURE GRAN ABSOLUTE AUTO 0.03 K/mm3 (0.00-0.10); IMMATURE GRAN PERCENT AUTO 0 % (0-1); LYMPHOCYTES PERCENT AUTO 26 % (21-46); MONOCYTES ABSOLUTE AUTO 0.93 K/mm3 (0.16-1.47); MONOCYTES PERCENT AUTO 9 % (4-13); Mean Corpuscular HGB 27.4 pg (26.0-34.0); Mean Corpuscular HGB Conc 33.3 g/dL (31.5-36.5); Mean Corpuscular Volume 83 fL (80-100); Mean Platelet Volume 10.1 fL (9.1-12.4); NEUTROPHILS ABSOLUTE AUTO 6.72 K/mm3 (1.96-9.15); NEUTROPHILS PERCENT AUTO 62 % (41-73); Platelet Count 337 K/mm3 (150-400); RDW Coefficient Variation 13.7 % (11.7-14.2); RDW Standard Deviation 40.9 fL (35.1-46.3); Red Blood Cell Count 5.32 M/mm3 (3.80-5.20); White Blood Cell Count 10.84 K/mm3 (4.00-11.30)
[2020-07-03 00:01] LABS: Anion Gap 5 mmol/L (6-16); Blood Urea Nitrogen 9 mg/dL (8-24); Bun/Creatinine Ratio 17.8 (12.0-20.0); CO2, Blood 28 mmol/L (21-32); Calcium, Blood 9.1 mg/dL (8.5-10.1); Chloride, Blood 98 mmol/L (98-108); Creatinine, Blood 0.51 mg/dL (0.40-1.00); Glomerular Filtration Rate >60 (60-); Glucose, Blood 112 mg/dL (70-99); Potassium, Blood 4.5 mmol/L (3.5-5.5); Sodium, Blood 131 mmol/L (136-145)
== END | disposition home or self-care (01) ==
LOC: EDSTATUS 11:51 → LAB UVN 22:40
PROVIDERS: Family Medicine
DX: E35 Disorders of endocrine glands in diseases classified elsewhere (principal); E87.1 Hypo-osmolality and hyponatremia
CPT/HCPCS: 80048; 85025

== ENCOUNTER → 2020-07-07 | Outpatient (CLI) | payer MEDICARE, OTHER ==
[2020-07-07 06:01] LABS: Source, Urine Clean Catch
[2020-07-07 06:18] LABS: Bilirubin, Urine Neg (Neg); Blood, Urine 2+ (Neg); Glucose Qualitative, Urine Neg (Neg); Ketones, Urine Neg (Neg); Leukocyte Esterase, Urine 2+ (Neg); Nitrite, Urine Neg (Neg); Protein, Urine Neg (Neg); Urobilinogen, Urine NORM (Normal)
[2020-07-07 06:29] LABS: Appearance, Urine Hazy (Clear); Color, Urine Yellow (P-Yellow)
[2020-07-07 06:31] LABS: Bacteria Rare /hpf; Red Blood Cells, Urine 0-2 /hpf (0-2); Squamous Epithelial Cells Few /hpf (Few)
== END | disposition home or self-care (01) ==
LOC: LAB UVN 05:54 → EDSTATUS 11:52
PROVIDERS: Family Medicine
DX: R82.89 Other abnormal findings on cytological and histological examination of urine (principal)
CPT/HCPCS: 81001; 87086

== ENCOUNTER → 2020-07-09 | Outpatient (CLI) | payer MEDICARE, OTHER ==
[2020-07-09 15:38] LABS: Source, Urine Catheter
[2020-07-09 15:46] LABS: Appearance, Urine Clear (Clear); Bilirubin, Urine Neg (Neg); Blood, Urine 1+ (Neg); Color, Urine Yellow (P-Yellow); Glucose Qualitative, Urine Neg (Neg); Ketones, Urine Neg (Neg); Leukocyte Esterase, Urine Neg (Neg); Nitrite, Urine Neg (Neg); Protein, Urine 1+ (Neg); Urobilinogen, Urine NORM (Normal)
[2020-07-09 16:13] LABS: Bacteria Few /hpf; Red Blood Cells, Urine 0-2 /hpf (0-2); Squamous Epithelial Cells Few /hpf (Few)
== END ==
LOC: EDSTATUS 11:53 → LAB UVN 15:34
PROVIDERS: Family Medicine
DX: N39.0 Urinary tract infection, site not specified (principal)
CPT/HCPCS: 81001

== ENCOUNTER → 2020-07-12 | Outpatient (CLI) | payer MEDICARE, OTHER ==
[2020-07-12 22:51] LABS: Alanine Aminotransfer (ALT/SGP 27 U/L (12-78); Albumin/Globulin Ratio 0.8 (0.8-1.8); Alk Phos 141 U/L (50-136); Anion Gap 9 mmol/L (6-16); Aspartate Aminotrans (AST/SGOT 22 U/L (12-37); Bilirubin, Total 0.3 mg/dL (0.1-1.0); Blood Urea Nitrogen 9 mg/dL (8-24); CO2, Blood 26 mmol/L (21-32); Calcium, Blood 9.4 mg/dL (8.5-10.1); Chloride, Blood 96 mmol/L (98-108); Creatinine, Blood 0.39 mg/dL (0.40-1.00); Glomerular Filtration Rate >60 (60-); Glucose, Blood 130 mg/dL (70-99); Potassium, Blood 4.6 mmol/L (3.5-5.5); Sodium, Blood 131 mmol/L (136-145)
== END | disposition home or self-care (01) ==
LOC: EDSTATUS 11:56 → LAB UVN 20:30
PROVIDERS: Family Medicine
DX: G35 Multiple sclerosis (principal); E87.1 Hypo-osmolality and hyponatremia; E78.5 Hyperlipidemia, unspecified
CPT/HCPCS: 80053

== ENCOUNTER 2020-07-25 13:55 | Inpatient (IN) | payer MEDICARE, OTHER ==
[~2020-07-25] VITALS: Ht 157.5 cm; Wt 114.8 kg
[~2020-07-25 13:55] MED LIST changes: -ALBU90OI INH; -AMLO5 PO; -Acetaminophen325 M1 PO; -BACL10 PO; -CALCIUM CARBON650 MG PO; -CEFU500T30 PO; -COSOPT EYE DROP10 ML BOTHEYES; -CRANBERRY450 M1 PO; -DONE5 PO; -Fosamax70 MG PO; -LEVETIRACETAM1000 M1 PO; -LISI20 PO; -NYSTATIN-TRIAMC15 GM TOP; -ONDA4ODT MM; -PIPERACIL TAZO IV; -POTCHL20ER PO; -PROM25 PO; -Pravastatin Sod80 MG PO; -SODCHL1 PO; -TRAM50 PO; -VISBIOME 112.51 EACH PO
[2020-07-25 14:36] LABS: Source, Urine Catheter
[2020-07-25 14:42] LABS: Appearance, Urine Cloudy (Clear); Bilirubin, Urine Neg (Neg); Blood, Urine 4+ (Neg); Color, Urine Yellow (P-Yellow); Glucose Qualitative, Urine Neg (Neg); Ketones, Urine Neg (Neg); Leukocyte Esterase, Urine 3+ (Neg); Nitrite, Urine Pos (Neg); Protein, Urine 2+ (Neg); Urobilinogen, Urine NORM (Normal)
[2020-07-25 14:48] LABS: Granular Casts 0-2 /lpf (0); White Blood Cells, Urine TNTC /hpf (0-5)
[2020-07-25 14:49] LABS: Bacteria Many /hpf; Squamous Epithelial Cells Few /hpf (Few)
[2020-07-25 15:41] LABS: BASOPHILS ABSOLUTE AUTO 0.05 K/mm3 (0.00-0.23); BASOPHILS PERCENT AUTO 0 % (0-2); EOSINOPHILS ABSOLUTE AUTO 0.19 K/mm3 (0.00-0.68); EOSINOPHILS PERCENT AUTO 1 % (0-6); Hematocrit 41.4 % (33.0-51.0); Hemoglobin 13.3 g/dL (11.5-16.0); IMMATURE GRAN ABSOLUTE AUTO 0.32 K/mm3 (0.00-0.10); IMMATURE GRAN PERCENT AUTO 2 % (0-1); LYMPHOCYTES PERCENT AUTO 12 % (21-46); MONOCYTES ABSOLUTE AUTO 1.06 K/mm3 (0.16-1.47); MONOCYTES PERCENT AUTO 7 % (4-13); Mean Corpuscular HGB Conc 32.1 g/dL (31.5-36.5); Mean Corpuscular Volume 84 fL (80-100); NEUTROPHILS ABSOLUTE AUTO 11.77 K/mm3 (1.96-9.15); NEUTROPHILS PERCENT AUTO 77 % (41-73); RDW Coefficient Variation 14.5 % (11.7-14.2); RDW Standard Deviation 44.2 fL (35.1-46.3); Red Blood Cell Count 4.92 M/mm3 (3.80-5.20); White Blood Cell Count 15.29 K/mm3 (4.00-11.30)
[2020-07-25 15:55] LABS: Mean Platelet Volume 9.9 fL (9.1-12.4); Platelet Count 259 K/mm3 (150-400)
[2020-07-25 15:56] LABS: Alanine Aminotransfer (ALT/SGP 47 U/L (12-78); Albumin/Globulin Ratio 0.4 (0.8-1.8); Alk Phos 254 U/L (50-136); Anion Gap 8 mmol/L (6-16); Aspartate Aminotrans (AST/SGOT 53 U/L (12-37); Bilirubin, Total 0.4 mg/dL (0.1-1.0); Blood Urea Nitrogen 15 mg/dL (8-24); Bun/Creatinine Ratio 23.3 (12.0-20.0); CO2, Blood 25 mmol/L (21-32); Calcium, Blood 9.2 mg/dL (8.5-10.1); Chloride, Blood 101 mmol/L (98-108); Creatinine, Blood 0.64 mg/dL (0.40-1.00); Globulin, Blood 5.4 g/dL (2.2-4.0); Glomerular Filtration Rate >60 (60-); Glucose, Blood 212 mg/dL (70-99); Potassium, Blood 4.2 mmol/L (3.5-5.5); Sodium, Blood 134 mmol/L (136-145); Total Protein, Blood 7.4 g/dL (6.4-8.2)
[2020-07-25] MEDS ORDERED: POTCHL20ER PO (16:35)
[2020-07-25] MEDS ORDERED: LEVETIRACETAM1000 M1 PO (16:35)
[2020-07-25] MEDS ORDERED: PRIM250 PO (16:36)
[2020-07-25] MEDS ORDERED: AMLO5 PO (16:36)
[2020-07-25] MEDS ORDERED: BACL10 PO (16:37)
[2020-07-25] MEDS ORDERED: Pravastatin Sod80 MG PO (16:37)
[2020-07-25] MEDS ORDERED: Fosamax70 MG PO (16:38)
[2020-07-25] MEDS ORDERED: COSOPT EYE DROP10 ML BOTHEYES (16:41)
[2020-07-25] MEDS ORDERED: CRANBERRY450 M1 PO ×2 (17:02→17:03)
[2020-07-25] MEDS ORDERED: CALCIUM CARBON650 MG PO (17:04)
[2020-07-25] MEDS ORDERED: SODCHL1 PO (17:04)
[2020-07-25] MEDS ORDERED: TRAM50 PO (17:05)
[2020-07-25] MEDS ORDERED: NYSTATIN-TRIAMC15 GM TOP (17:06)
--- NOTE | 2020-07-25 18:30 | NUR ---
Arrival to unit Received report from [facility] ED-RN. Patient arrived via gurney. Slide transfer x 3 assist. Bed in lowest position, call light near. Received report that patient still needs lactic acid and venous blood gas drawn, this has been passed onto receiving RN Cynthia.
--- NOTE | 2020-07-25 19:50 | NUR ---
ASSUMED CARE. RAMU IS AOX1, CONFUSED ABOUT PLACE, TIME AND EVENT. LAB SHOWED UP TO ROOM AND REPORTED THEY TRIED TO GET LABS DOWN IN ER 8 TIMES WITH NO SUCCESS, ASKED IF WE CAN DO A POWERGLIDE. INFORMED CHARGE NURSE. SHE DOES HAE IV IN THR RIGHT UPPER SHOULDER FLUSHES. ATTENDS CHANGED, SATURATED WIHT URINE. REDNESS IN GROIN, HAS MS AND IS UNABLE TO MOVE LEFT SIDE DUE TO THIS. LEFT IS FLACCID. IS ABLE TO MOVE RIGHT SIDE BUT HAS LIMITED ROM TO BOTH EXTREMITITES. DENIES PAIN. HR SINUS. BLE EDEMA NOTED. GAVE HER SOME JUICE. CHARGE TO USE ULTRASOUND TO SEE IF THEY CAN GET ANOTHER IV TO PULL LABS OFF OF. CALL LIGHT IS IN REACH.
[2020-07-25] MEDS ORDERED: ONDA4ODT MM (20:06)
--- NOTE | 2020-07-25 20:40 | NUR ---
LAB HAS ATTEMPTED TO DRAW LABS AGAIN 3-4 TIMES. MARGY RN IN ROOM USING ULTRASOUND TO FIND A VEIN. MEDS GIVEN. WAITING TO START IVF TILL HE IS DONE. SHE DRANK ALL THE FLUIDS.
--- NOTE | 2020-07-25 21:35 | NUR ---
MARGY WAS UNSECCESSFUL IN GETTING AN IV STARTED. CHECKED ON RIGHT SHOULDER IV AND NOTICED IT WAS INFILTRATED. ATTEMPTED TO START ANOTHER IV TWICE WITH NO SUCCESS. ASKED CHARGE MARGY RN TO CALL FOR SOMEONE TO PLACE A POWERGLIDE. HE CALLED A SURGICAL NURSE WHICH WILL COME UP WHEN SHE HAS A CHANCE. IVF STOPPED AND IV REMOVED.
--- NOTE | 2020-07-25 23:25 | NUR ---
POWERGLIDE PLACED IN RIGHT UPPER ARM BY SOBEIDA CRUM RN. LABS WERE DRAWN AND SENT. IVF STARTED. CHECKED ATTENDS WHICH WAS DRY. REPOSITIONED IN BED. SHE CONTINUES TO HAVE ABDOMINAL CRAMPS OFF AND ON BUT THEY DON'T LAST LONG. CALL LIGHT IS IN REACH.
[2020-07-26 00:10] LABS: Base Excess Venous 1.6 mmol/L; Bicarbonate Venous 24.7 mmol/L (24.0-30.0); PCO2 Venous 49.8 mmHg (38-42); PO2 Venous 46.5 mmHg (38-42); pH Blood Venous 7.35 (7.34-7.37)
[2020-07-26 00:58] LABS: U Amphetamine Screen Not Detected; U Barbituate Screen DETECTED; U Benzodiazapine Screen Not Detected; U Buprenorphine Screen Not Detected; U Cannabinoids Screen Not Detected; U Cocaine Screen Not Detected; U Methadone Screen Not Detected; U Methamphetamine Screen Not Detected; U Opiates Screen Not Detected; U Oxycodone Screen Not Detected; U Phencyclidine Screen Not Detected; U Propoxyphene Screen Not Detected
[2020-07-26 05:35] LABS: Hematocrit 37.4 % (33.0-51.0); Hemoglobin 12.2 g/dL (11.5-16.0); Mean Corpuscular HGB 26.6 pg (26.0-34.0); Mean Corpuscular HGB Conc 32.6 g/dL (31.5-36.5); Mean Corpuscular Volume 82 fL (80-100); Mean Platelet Volume 9.5 fL (9.1-12.4); Platelet Count 319 K/mm3 (150-400); RDW Coefficient Variation 14.4 % (11.7-14.2); RDW Standard Deviation 41.8 fL (35.1-46.3); Red Blood Cell Count 4.58 M/mm3 (3.80-5.20); White Blood Cell Count 14.25 K/mm3 (4.00-11.30)
--- NOTE | 2020-07-26 05:47 | NUR ---
SHIFT SUMMARY: AOX1, VERY DISORIENTED, EMOTIONAL AT TIMES. NEEDS REASSURANCE ON WHERE SHE IS AND WHAT IS GOING ON. FOLLOWS DIRECTION AND DOES CALL OUT AT TIMES, HAS NOT USED CALL LIGHT THIS SHIFT. LEFT SIDE DEFICIT FROM MS, BOTH UE AND LE ARE FLACCID. NO OTHER NEURO DEFICITS. LUNGS CLEAR. HR SINUS ON TELE. VS WNL, WAS 102 HR THIS AM. SHE CAN GET ANXIOUS DUE TO HER CONFUSION. DIFFICULT LAB DRAW/IV START. LOST IV AT START OF SHIFT. AFTER SEVERAL FAILED ATTEMPTS HAD SURGICAL NURSE COME UP AND PLACE A POWERGLIDE. LACTIC 1.7, PCO2 49.8 AND PO2 46.3. INCONTIENT OF URINE AND STOOL, GROIN STARTING TO GET RED, APPLIED BARRIER CREAM. REPOSITION Q2. IV LR INFUSING, ALMOST COMPLETED. ENCOURAGED FLUID INTAKE. CALL LIGHT IS IN REACH, AND BED ALARM IS ON.
--- NOTE | 2020-07-26 18:31 | NUR ---
SHIFT SUMMARY PT A/O TO SELF AND PERSON THIS SHIFT. PT HAS BEEN CONFUSED AND FATIGUED THIS SHIFT. PT WAS UNABLE TO WORK WITH O.T. DUE TO NOT WILLING TO PARTICIPATE. SPOKE WITH HER DAUGHTER AND LEARNED THAT AT BASELINE THE PT IS ALERT AND ORIENTED AND THIS CONFUSION IS NEW FOR HER. SHE HAS BEEN BECOME INCREASINGLY WITHDRAWN WHILE BEING AT [facility] ACCORDING TO HER DAUGHTER WELL. PT HAS HX OF MS AND ENTIRE L SIDE OF THE BODY IS FLACCID. PT IS UNABLE TO BEAR WEIGHT AND IS A 2 PERSON TO TURN AND CHANGE. VSS; WILL REPORT TO ANTISUBMARINE WEAPONS OFFICER.
--- NOTE | 2020-07-26 19:50 | NUR ---
ASSUMED CARE. AOX1, STILL VERY CONFUSED AND DOES NOT KNOW WHERE SHE IS AT. DENIES ANY PAIN IN ABD AT THIS TIME. NO NAUSEA. POOR APPETITE. REDNESS IN ON INNER THIGHS IS SLIGHTLY WORSE DUE TO HER LARGE THIGHS AND DIFFICULTY GETTING ATTENDS IN WITH OUT PINCHING SKIN. STATES SHE IS TIRED. CHANGED ATTENDS, SATURATED WIHT URINE. BARRIER CREAM APPLIED. REPOSITIONED ON LEFT SIDE.
[2020-07-27 04:53] LABS: Hematocrit 35.8 % (33.0-51.0); Hemoglobin 11.6 g/dL (11.5-16.0); Mean Corpuscular HGB 26.4 pg (26.0-34.0); Mean Corpuscular HGB Conc 32.4 g/dL (31.5-36.5); Mean Corpuscular Volume 82 fL (80-100); Mean Platelet Volume 9.8 fL (9.1-12.4); Platelet Count 320 K/mm3 (150-400); RDW Coefficient Variation 14.3 % (11.7-14.2); RDW Standard Deviation 42.5 fL (35.1-46.3); Red Blood Cell Count 4.39 M/mm3 (3.80-5.20); White Blood Cell Count 10.39 K/mm3 (4.00-11.30)
--- NOTE | 2020-07-27 06:16 | NUR ---
SHIFT SUMMARY: RAMU CONTINUES TO BE DISORIENTED T/O THE NIGHT, ONLY KNOWS SELF. DOES USE CALL LIGHT APPROPRIATLY. REDNESS IN GROIN STILL PRESENT, USING BARRIER CREAM. GOOD URINE OUTPUT. REPOSITIONED PRN. POOR APPETITE. VS WNL, AFEBRILE. NO ACUTE CHANGES THIS SHIFT. CALL LIGHT WITH IN REACH.
--- NOTE | 2020-07-27 17:07 | NUR ---
Spiritual care note: Mone was covered in her blankets head-to-toe. Lunch was sitting, untouched on bedside table. I touched her and she awakened. She appears confused. She looked at her lunch and said, "I never eat." She was dismissive stating, "I don't have time for a wetlands conservation laborer." Rehab Specialist services will remain available.
--- NOTE | 2020-07-28 05:22 | NUR ---
CLINICAL SALES CONSULTANT SUMMARY NO ACUTE CHANGES THIS SHIFT. PT AAOX3 BUT DOES HAVE SOME INTERMITTENT CONFUSION. REQUIRES MAX ASSIST FOR ATTENDS CHANGES AND IS A HEAVY WETTER. DENIES PAIN, SOB, N/V. PT HAS RESTED MOST OF THE NIGHT, NADN. VSS, WILL CONTINUE TO MONITOR.
--- NOTE | 2020-07-28 07:25 | NUR ---
pt sleeping has her blanket over her head
--- NOTE | 2020-07-28 08:55 | NUR ---
dr sanchez by to see pt
--- NOTE | 2020-07-28 09:50 | NUR ---
meds given with prune juice assisted pt onto bed chavis pt feels like she may have bm
--- NOTE | 2020-07-28 10:57 | NUR ---
pt had bm on bed chavis with assist pt had prune juice per req
[2020-07-28] MEDS ORDERED: Acetaminophen325 M1 PO (11:02)
[2020-07-28] MEDS ORDERED: VISBIOME 112.51 EACH PO (11:02)
[2020-07-28] MEDS ORDERED: CEFU500T30 PO (11:02)
[2020-07-28] MEDS ORDERED: LISI20 PO (11:02)
--- NOTE | 2020-07-28 12:00 | NUR ---
pt declined lunch per cna instructor
[2020-07-28 12:19] LABS: Influenza A, PCR Negative (NEGATIVE); Influenza B, PCR Negative (NEGATIVE); Resp Syncytial Virus, PCR Negative (NEGATIVE); SARS-Cov-2 (COVID-19) PCR, MMC Negative (NEGATIVE)
--- NOTE | 2020-07-28 12:39 | NUR ---
pt to transport to [facility] at [id number]
--- NOTE | 2020-07-28 15:35 | NUR ---
ATTENDS CHANGED POWER GLIDE REMOVED MEDS GIVEN PT OOB WITH SLING TO WITH AMBULANCE TRANSPORT NO ACUTE CHANGES
--- NOTE | 2020-07-28 15:41 | NUR ---
[facility]
== END 2020-07-28 15:33 | DRG 871 ==
LOC: ER 13:55 → MEDS 17:35 → ENPENDDIS 07-28 10:11 → MEDS 07-28 15:33
PROVIDERS: Emergency Medicine; ADMIT Internal Medicine
DX: A41.51 Sepsis due to Escherichia coli [E. coli] (principal); G92 Toxic encephalopathy; N39.0 Urinary tract infection, site not specified; Z68.41 Body mass index [BMI] 40.0-44.9, adult; Z20.822 Contact with and (suspected) exposure to COVID-19; G35 Multiple sclerosis; E11.9 Type 2 diabetes mellitus without complications; G40.909 Epilepsy, unspecified, not intractable, without status epilepticus; E66.9 Obesity, unspecified; E78.5 Hyperlipidemia, unspecified; F03.90 Unspecified dementia, unspecified severity, without behavioral disturbance, psychotic disturbance, mood disturbance, and anxiety; I10 Essential (primary) hypertension; M81.0 Age-related osteoporosis without current pathological fracture; A40.9 Streptococcal sepsis, unspecified
CPT/HCPCS: 0241U; 36415; 70450; 71045; 80053; 81001; 82803; 82947; 83605; 85025; 85027; 87040; 87077; 87086; 87186; 93005; 93010; 96374; 97162; 97530; 99285-25; A9270; J0696; J1650; J7050; J7120

== ENCOUNTER → 2020-08-24 | Outpatient (CLI) | payer MEDICARE, OTHER ==
[~2020-08-24] MED LIST changes: +ALBU90OI INH; +AMLO5 PO; +Acetaminophen325 M1 PO; +BACL10 PO; +CALCIUM CARBON650 MG PO; +CEFU500T30 PO; +COSOPT EYE DROP10 ML BOTHEYES; +CRANBERRY450 M1 PO; +DONE5 PO; +Fosamax70 MG PO; +LEVETIRACETAM1000 M1 PO; +LISI20 PO; +NYSTATIN-TRIAMC15 GM TOP; +ONDA4ODT MM; +PIPERACIL TAZO IV; +POTCHL20ER PO; +PROM25 PO; +Pravastatin Sod80 MG PO; +SODCHL1 PO; +TRAM50 PO; +VISBIOME 112.51 EACH PO
[2020-08-24 14:42] LABS: Appearance, Urine Turbid (Clear); Blood, Urine 4+ (Neg); Color, Urine Yellow (P-Yellow); Glucose Qualitative, Urine Neg (Neg); Ketones, Urine 1+ (Neg); Leukocyte Esterase, Urine 3+ (Neg); Nitrite, Urine Neg (Neg); Protein, Urine 3+ (Neg); Urobilinogen, Urine 2+ (Normal)
[2020-08-24 14:43] LABS: Hematocrit 38.4 % (33.0-51.0); Hemoglobin 12.2 g/dL (11.5-16.0); Mean Corpuscular HGB Conc 31.8 g/dL (31.5-36.5); Mean Corpuscular Volume 82 fL (80-100); Mean Platelet Volume 9.7 fL (9.1-12.4); Platelet Count 113 K/mm3 (150-400); RDW Standard Deviation 47.8 fL (35.1-46.3); White Blood Cell Count 14.77 K/mm3 (4.00-11.30)
[2020-08-24 14:55] LABS: Bilirubin, Urine 1+ (Neg)
[2020-08-24 14:57] LABS: Bacteria Many /hpf; Red Blood Cells, Urine Not Seen /hpf (0-2); Squamous Epithelial Cells Not Seen /hpf (Few); White Blood Cells, Urine TNTC /hpf (0-5)
[2020-08-24 15:00] LABS: Anion Gap 10 mmol/L (6-16); Blood Urea Nitrogen 20 mg/dL (8-24); Bun/Creatinine Ratio 27.4 (12.0-20.0); CO2, Blood 25 mmol/L (21-32); Calcium, Blood 8.7 mg/dL (8.5-10.1); Chloride, Blood 98 mmol/L (98-108); Creatinine, Blood 0.73 mg/dL (0.40-1.00); Glomerular Filtration Rate >60 (60-); Glucose, Blood 118 mg/dL (70-99); Potassium, Blood 3.8 mmol/L (3.5-5.5); Sodium, Blood 133 mmol/L (136-145)
== END ==
LOC: EDSTATUS 13:19 → LAB UVN 14:00
PROVIDERS: Family Medicine
DX: N39.0 Urinary tract infection, site not specified (principal); A41.89 Other specified sepsis; Z88.8 Allergy status to other drugs, medicaments and biological substances
CPT/HCPCS: 80048; 81001; 85027; 87077; 87086; 87186

== ENCOUNTER 2020-09-01 21:06 | Inpatient (IN) | payer MEDICARE, OTHER ==
[~2020-09-01] VITALS: Ht 167.6 cm; Wt 115.3 kg
[~2020-09-01 21:06] MED LIST changes: -ALBU90OI INH; -DONE5 PO; -PIPERACIL TAZO IV; -PROM25 PO
[2020-09-01] MEDS ORDERED: PIPERACIL TAZO IV (21:40)
[2020-09-01] MEDS ORDERED: ALBU90OI INH (21:43)
[2020-09-01] MEDS ORDERED: DONE5 PO (21:45)
[2020-09-02 00:17] LABS: BASOPHILS ABSOLUTE AUTO 0.04 K/mm3 (0.00-0.23); BASOPHILS PERCENT AUTO 0 % (0-2); EOSINOPHILS ABSOLUTE AUTO 0.33 K/mm3 (0.00-0.68); EOSINOPHILS PERCENT AUTO 2 % (0-6); Hemoglobin 10.3 g/dL (11.5-16.0); IMMATURE GRAN PERCENT AUTO 2 % (0-1); LYMPHOCYTES PERCENT AUTO 11 % (21-46); MONOCYTES ABSOLUTE AUTO 0.57 K/mm3 (0.16-1.47); MONOCYTES PERCENT AUTO 3 % (4-13); Mean Corpuscular HGB 25.9 pg (26.0-34.0); Mean Corpuscular HGB Conc 32.2 g/dL (31.5-36.5); Mean Corpuscular Volume 81 fL (80-100); Mean Platelet Volume 9.9 fL (9.1-12.4); NEUTROPHILS ABSOLUTE AUTO 13.55 K/mm3 (1.96-9.15); NEUTROPHILS PERCENT AUTO 81 % (41-73); NRBC Auto 0.6 /100 WBC (0.0-0.2); Platelet Count 224 K/mm3 (150-400); RDW Coefficient Variation 17.6 % (11.7-14.2); RDW Standard Deviation 50.5 fL (35.1-46.3); Red Blood Cell Count 3.97 M/mm3 (3.80-5.20); White Blood Cell Count 16.69 K/mm3 (4.00-11.30)
[2020-09-02 00:27] LABS: Source, Urine Catheter
[2020-09-02 00:37] LABS: Appearance, Urine Turbid (Clear); Bilirubin, Urine Neg (Neg); Blood, Urine 3+ (Neg); Color, Urine Amber (P-Yellow); Glucose Qualitative, Urine Neg (Neg); Ketones, Urine 1+ (Neg); Leukocyte Esterase, Urine 3+ (Neg); Nitrite, Urine Neg (Neg); Protein, Urine 2+ (Neg); Urobilinogen, Urine NORM (Normal)
[2020-09-02 00:38] LABS: Albumin, Blood 1.6 g/dL (3.4-5.0); Albumin/Globulin Ratio 0.4 (0.8-1.8); Bilirubin, Total 0.5 mg/dL (0.1-1.0); Bun/Creatinine Ratio 34.3 (12.0-20.0); Calcium, Blood 7.7 mg/dL (8.5-10.1); Creatinine, Blood 1.4 mg/dL (0.40-1.00); Globulin, Blood 4.1 g/dL (2.2-4.0); Potassium, Blood 2.4 mmol/L (3.5-5.5); Total Protein, Blood 5.7 g/dL (6.4-8.2)
[2020-09-02 00:50] LABS: Bacteria Many /hpf; Squamous Epithelial Cells Mod /hpf (Few); White Blood Cells, Urine TNTC /hpf (0-5)
[2020-09-02] MEDS ORDERED: PROM25 PO (03:42)
--- NOTE | 2020-09-02 04:00 | NUR ---
ASSUMED PT CARE FROM ED AT 0245 PT ARRIVED WITH CENTRAL LINE TO RIGHT SUBCLAVIAN VEIN; LEVOPHED INFUSING AT 10MCG/MIN. RIGHT FEMORAL ARTERIAL LINE WITH SBP'S 140'S; THEREFORE, LEVOPHED TITRATED DOWN AND EVENTUALLY OFF FOR A SHORT WHILE. PT ONLY OPENS EYES TO VERBAL STIMULI. SHE IS ABLE TO FOLLOW COMMANDS; HOWEVER, VERY SOMNOLENT WITH MOANING AND GROANING NOTED TO PAINFUL STIMULI. PT UNABLE TO VERBALIZE WHERE PAIN IS AT, NOR TO COMMUNICATE NEEDS. NSR NOTED WITH OCCASIONAL PVC'S AND HR 80'S. TEMP 96.0 UPON ARRIVAL; THEREFORE, BEAR HUGGER PLACED ON PT. TEMP PAREDES CATHETER IS PATENT AND DRAINING CLOUDY/TURBID YELLOW URINE TO GRAVITY. PT HAD PINK RESIDUAL NOTED INSIDE MOUTH; THEREFORE, ORAL CARES PERFORMED AND MOISTURIZER APPLIED TO CRACKED/DRY TONGUE. ORAL MUCOSA NOTED TO START BLEEDING A MINIMAL AMOUNT. NO SEIZURE ACTIVITY NOTED SINCE ASSUMPTION OF CARE; THEREFORE, MOST LIKELY D/T DRY ORAL MUCOSA. PT IS LIMITED CODE WITH MEDS ONLY; POLST FORM STATES CPR/LIMITED INTERVENTIONS, WHICH WAS DISCUSSED WITH DR. WHALEN. HE ASKED THAT IF FAMILY CALLS TO VERIFY PT'S WISHES POLST IS CONTRAINDICATIVE WITH CPR AND NO INTUBATION LISTED. LEVOPHED CURRENTLY AT 6MCG/MIN D/T SBP 80-90 AND MAP'S <60; CURRENTLY MAINTAINING WITH SBP 90-100 AND MAP'S >60 MMHG. NS INFUSING AT 75MLS/HR. WILL CONTINUE TO MONITOR UNTIL REPORT IS HANDED OFF TO ONCOMING RN.
[2020-09-02 04:03] LABS: BASOPHILS ABSOLUTE AUTO 0.06 K/mm3 (0.00-0.23); BASOPHILS PERCENT AUTO 0 % (0-2); EOSINOPHILS ABSOLUTE AUTO 0.24 K/mm3 (0.00-0.68); EOSINOPHILS PERCENT AUTO 1 % (0-6); Hematocrit 31.3 % (33.0-51.0); Hemoglobin 10.4 g/dL (11.5-16.0); IMMATURE GRAN ABSOLUTE AUTO 0.42 K/mm3 (0.00-0.10); IMMATURE GRAN PERCENT AUTO 2 % (0-1); LYMPHOCYTES ABSOLUTE AUTO 1.82 K/mm3 (0.84-5.20); LYMPHOCYTES PERCENT AUTO 9 % (21-46); MONOCYTES ABSOLUTE AUTO 0.59 K/mm3 (0.16-1.47); MONOCYTES PERCENT AUTO 3 % (4-13); Mean Corpuscular HGB 26.6 pg (26.0-34.0); Mean Corpuscular HGB Conc 33.2 g/dL (31.5-36.5); Mean Corpuscular Volume 80 fL (80-100); Mean Platelet Volume 10.2 fL (9.1-12.4); NEUTROPHILS ABSOLUTE AUTO 16.95 K/mm3 (1.96-9.15); NEUTROPHILS PERCENT AUTO 84 % (41-73); NRBC ABSOLUTE 0.19 K/mm3 (0.00-0.02); NRBC Auto 0.9 /100 WBC (0.0-0.2); Platelet Count 257 K/mm3 (150-400); RDW Coefficient Variation 17.5 % (11.7-14.2); RDW Standard Deviation 49.5 fL (35.1-46.3); Red Blood Cell Count 3.91 M/mm3 (3.80-5.20); White Blood Cell Count 20.08 K/mm3 (4.00-11.30)
[2020-09-02 04:23] LABS: Albumin, Blood 1.5 g/dL (3.4-5.0); Albumin/Globulin Ratio 0.4 (0.8-1.8); Bilirubin, Total 1.1 mg/dL (0.1-1.0); Bun/Creatinine Ratio 36.3 (12.0-20.0); Calcium, Blood 7.3 mg/dL (8.5-10.1); Creatinine, Blood 1.24 mg/dL (0.40-1.00); Globulin, Blood 4.1 g/dL (2.2-4.0); Potassium, Blood 2.6 mmol/L (3.5-5.5); Total Protein, Blood 5.6 g/dL (6.4-8.2)
--- NOTE | 2020-09-02 07:55 | NUR ---
ASSUMED CARE REPORT FROM RAFI PEARSON. PT RESTING IN BED. MOANS TO PAINFUL STIMULI. DOES NOT FOLLOW COMMANDS. SHALLOW RESP. LUNGS DIMINISHED IN BASES. O2 SATS >95% ON RA. ORAL CARE PERFORMED. PT PROTECTING AIRWAY AT THIS TIME, BUT SOMULENT. NSR c PVCS, LEVO GTT FOR MAP>65, CURRENTLY INFUSING AT 8 MCG/MIN. ART LINE TO RIGHT GROIN, ZEROED, DRESSING C/D/I. CENTRAL LINE TO R SUBCLAVIAN. DRESSING C/D/I, INFUSING s DIFFICULTY. SKIN PALE, WARM, TEMP 97.7, SHILA HUGGER TURNED TO LOW. FAINT PERIPHERAL PULSES. ABD OBESE, SOFT, NON TENDER. HYPOACTIVE BT. PAREDES PATENT, DRAINING CLOUDY YELLOW URINE TO GRAVITY. GENERALIZED EDEMA THROUGHOUT. SPOKE c DAUGHTER ON PHONE, STATES PT WOULD LIKE TO REMAIN FULL CODE AT THIS TIME. DR CASTRO UPDATED. WILL CONTINUE TO MONITOR.
--- NOTE | 2020-09-02 17:00 | NUR ---
COMFORT CARE DISCUSSION DR CASTRO AT BEDSIDE TO DISCUSS CT RESULTS c DAUGHTER MADELINE. DISCUSSED OPTIONS REGARDING CONTINUED TREATMENT OF UTI AND ONCOLOGY CONSULT AND COMFORT CARE. AFTER DISCUSSION c DR CASTRO AND MADELINE CALLING OTHER DAUGHTER IN [place], DECISION TO MAKE PT COMFORT CARE MADE. DNR STATUS. DR CASTRO TO PLACE COMFORT CARE ORDERS. OTHER DAUGHTER JOVANY ON THE WAY FROM [place]. WILL CONTINUE LEVOPHED GTT UNTIL ALL FAMILY ARRIVES. OK'D c LANEY CHARGE NURSE, DR CASTRO AWARE.
[2020-09-02 17:16] LABS: Bun/Creatinine Ratio 34.1 (12.0-20.0); Calcium, Blood 7.7 mg/dL (8.5-10.1); Creatinine, Blood 1.23 mg/dL (0.40-1.00); Potassium, Blood 3.8 mmol/L (3.5-5.5)
--- NOTE | 2020-09-02 17:38 | NUR ---
SHIFT SUMMARY PT MADE COMFORT CARE AFTER CT SCAN REVEALING PANCREATIC CA c METS. LEVO GTT CONTINUES UNTIL FAMILY ARRIVES THIS EVENING. DNR STATUS. PT OPENS EYES TO VERBAL STIMULI. DOES NOT FOLLOW DIRECTIONS. MOANS. ART LINE AND CENTRAL LINE REMAIN IN PLACE. DRESSINGS C/D/I. PAREDES PATENT, DRAINING CLOUDY YELLOW URINE TO GRAVITY. WILL CONTINUE TO MONITOR UNTIL REPORT TO ONCOMING NURSE.
--- NOTE | 2020-09-02 20:14 | NUR ---
ASSUMED CARE RECEIVED REPORT FROM MICHEL JIMENEZ. PT's DAUGHTERS ARE AT BEDSIDE. PT IS RESPONSIVE TO VERBAL STIMULI, BUT UNABLE TO COMMUNICATE AT ALL. SHE IS ABLE TO CLEAR SECRETIONS WEAKLY. PT DOES NOT APPEAR TO BE IN ANY DISTRESS OR PAIN. BED LOW AND LOCKED.
--- NOTE | 2020-09-02 21:18 | NUR ---
UPDATE LEVOPHED TURNED OFF. CPOT OF 1 CURRENTY, MOANING INTERMITTENTLY. DISCUSSED GOALS OF COMFORT CARE WITH DAUGHTERS. PT WILL OCCASSIONALLY OPEN HER EYES, BUT WILL OFTEN CLOSE THEM QUICKLY AND START MOANING. STILL HAS A WEAK COUGH, WHICH IS HELPING WITH THE SECRTIONS.
--- NOTE | 2020-09-02 21:49 | NUR ---
CPOT OF 2 TENSION SEEN IN FACE, MOANING INTERMITTENTLY, HAVING SLIGHTLY INCREASED SECRETIONS. 1 MG OF ATIVAN AND 10 MG OF ROXENOL GIVEN AT 2145. WILL CONTINUE TO MONITOR. THE DAUGHTERS HAVE BEEN HELPING WITH REPOSITIONING.
--- NOTE | 2020-09-03 00:36 | NUR ---
PATIENT TRANSFERRED FROM ICU 13 TO ROOM 341. AFTER TRANSFER, PATIENT WAS MOANING. MEDICATED PER EMAR FOR PAIN. SHE IS ALSO GURGLING WHEN SHE BREATHES. MEDICATED PER EMAR WITH ATROPINE TO HELP WITH SECRETIONS. DAUGHTERS AT BEDSIDE.
--- NOTE | 2020-09-03 04:27 | NUR ---
SHIFT SUMMARY PATIENT MEDICATED PER EMAR ONCE FOR PAIN AND SECRETIONS SINCE HER TRANSFER FROM ICU. SHE IS DIFFICULT TO AROUSE AND ONLY RESPONDS TO PAINFUL STIMULUS. SHE IS CURRENTLY RESTING COMFORTABLY. DAUGHTERS AT BEDSIDE ALSO SLEEPING. BED IN LOWEST POSITION WITH WHEELS LOCKED AND ALARM ON. CALL LIGHT WITHIN REACH. REPORT GIVEN TO ONCOMING RN.
--- NOTE | 2020-09-03 18:45 | NUR ---
PT RESTING IN BED, COMFORTABLE, MAKING NO COMPLAINTS. PT'S FAMILY AT BEDSIDE THIS SHIFT. PT TURNED Q2 AND MEDICATED PER EMAR OR COMFORT.
--- NOTE | 2020-09-04 05:07 | NUR ---
SALES ACCOUNT COORDINATOR SUMMARY NO ACUTE CHANGES. PT UNRESPONSIVE AND HAS BEEN SLEEPING T/O SHIFT. PT MOANS OUT AT TIMES, MEDICATED ONCE FOR PAIN/COMFORT WITH 10 MG ROXANOL. REPOSITIONED THROUGH THE NIGHT, PT MORE PAINFUL WITH REPOSITIONING. WILL CONTINUE TO KEEP PT COMFORTABLE AND MONITOR UNTIL RN HANDOFF.
--- NOTE | 2020-09-04 10:27 | NUR ---
PT APPEARS TO BE COMFORTABLE THIS AM, BREATHS EVEN
--- NOTE | 2020-09-04 10:29 | NUR ---
PT REPOSITIONED, STARTED MOANING THOUGH SHE WAS HAVING PAIN, MEDICATED FOR PAIN, PT APPEARS TO BE COMFORTABLE AT THIS TIME
--- NOTE | 2020-09-04 11:37 | NUR ---
PT APPEARS TO BE RESTING COMFORTABLY AT THIS TIME
--- NOTE | 2020-09-04 12:43 | NUR ---
PAL CARE COMFORT CARE VISIT - Pt is unresponsive to voice or touch. No family present during my visit. Minimal dk yellow urine in peña drainage bag, skin/dry, even and unlabored resp. I did not note any nonverbal indicators of moderate to severe pain, dyspnea, distress or agitation. She has 3-4 + edema of LE and UE are also very edemetous. Pt had been repositioned recently. She is very pale and ashen. She did not open her eyes but did respond minimally when I washed her face. I spoke with RN on needs and none identified. Pal Care will continue to visit daily and as requested/needed for support and s/s management.
--- NOTE | 2020-09-04 13:49 | NUR ---
PT MOANING LOUDLY, MEDICATED FOR PAIN AND ANXIETY, WILL CONTINUE TO MONITOR FOR CHANGES
--- NOTE | 2020-09-04 17:33 | NUR ---
PT APPEARS TO BE RESTING COMFORTABLY AT THIS TIME
--- NOTE | 2020-09-04 17:34 | NUR ---
PT REPOSITIONED, MOANED SOME, NOW APPEARS TO BE RESTING COMFORTABLY, WILL CONTINUE TO MONITOR FOR CHANGES
--- NOTE | 2020-09-04 18:13 | NUR ---
PT APPEARS TO BE RESTING COMFORTABLY AT THIS TIME
--- NOTE | 2020-09-04 20:02 | NUR ---
BOOKKEEPING MACHINE OPERATOR Kate Issa updated we would like oral route for ativan as well as IV. Order placed.
--- NOTE | 2020-09-04 21:14 | NUR ---
MEDICATED FOR PAIN & ANXIETY pt NONVERBAL BUT MOANING LOUDLY. CURRENTLY RECIEVING tavares CASTRO.
--- NOTE | 2020-09-05 05:37 | NUR ---
PT appears older than actual age of 69. On comfort measures required meds for pain & anxiety. Oral suction for loose nonprod cough, sm amt thick yellow sputum removed. peña cath patent minimal output. NPO. PT moans loudly at times otherwise nonverbal .
--- NOTE | 2020-09-05 13:02 | NUR ---
PAL CARE COMFORT CARE VISIT - Pt with shallow respirations and apnic at times. Periph mottling noted and pale to ashen color noted overall. Pt with minimal dk yellow urine output in peña drainage bag. Some furrowing of brow noted after we repositioned pt. RN using roxinol per eMAR for comfort. Pt has new upper airway secretions noted. Discussed use of scopolomine patch for decreasing secretions. Pt's shante had called in earlier and spoken to RN for update. Pt appears to be more actively in the process of dying today than she was yesterday.
--- NOTE | 2020-09-05 14:45 | NUR ---
Met pt. in bed and pt. is in comfort care no family member in the room I offered prayers and blessed pt.
--- NOTE | 2020-09-05 18:00 | NUR ---
Spiritual care note: No family present at time of visit. Mrs. Miner was non-responsive to voice or touch. She appeared in no distress, breaths even and shallow. I held her hand and provided audible prayer. I will remain available.
--- NOTE | 2020-09-05 18:08 | NUR ---
SHIFT SUMMARY PATIENT REMAINS ON COMFORT CARE. PATIENT ASLEEP THROUGHOUT THIS SHIFT, OPENING EYES BRIEFLY WHEN REPOSITIONED. PATIENT MEDICATED FOR PAIN 2X THIS SHIFT. PATIENT MOANS OCCASIONALLY, GENERALLY AFTER REPOSITIONING. PATIENT REMAINS NON-VERBAL THROUGHOUT THIS SHIFT. PATIENT'S BREATHING SHALLOW THOUGHOUT THIS SHIFT. PATIENT HAS APPEARED COMFORATABLE OTHER THAN DURING REPOSITIONING.
--- NOTE | 2020-09-06 10:27 | NUR ---
UPDATED PATIENT DAUGHTER, MADELINE, ON CONDITION.
--- NOTE | 2020-09-06 17:29 | NUR ---
Spiritual care note: Mrs. Miner appears comfortable. Breaths even, skin pale. Her hands/arms are terribly swollen. She did not respond to voice or touch. No family present. Provided prayer at bedside and will remain available.
--- NOTE | 2020-09-06 17:55 | NUR ---
COMFORT CARE. APPEARS COMFORTABLE ALL SHIFT. SHALLOW BREATHING. PALE IN COLOR. LIMBS STIFF. MEDICATED ONCE FOR EXCESS SECRETIONS WITH GOOD RESULTS. WCTM
--- NOTE | 2020-09-07 07:10 | NUR ---
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 PT's DAUGHTER STAYED WITH PATIENT IN ROOM OVERNIGHT. NO S/S PAIN OR ANY DISTRESS NOTED. PT SLEEPING COMFORTABLY. REPOSITIONED FOR COMFORT. AT APPROXIMATELY 0659 THIS SHIFT, PT HAD IN PEACE W/ DAUGHTER AT BEDSIDE.
--- NOTE | 2020-09-07 07:12 | NUR ---
PATIENT PASSED ON ABOUT 657. RAQUEL RIVERA. NOTIFIED. DAUGHTER IN ROOM.
--- NOTE | 2020-09-07 07:36 | NUR ---
Spiritual care visit conducted. Shortly after patient , I visit with patient's daughter, Tete. I conduct a life review and provide grief support and prayer. Tete responds well and shows signs of being comforted.
== END 2020-09-07 06:59 | DRG 871 ==
LOC: ER 21:06 → ICUW 09-02 02:00 → MEDS 09-03 00:15
PROVIDERS: Family Medicine; Student in an Organized Health Care Education/Training Program; ADMIT Internal Medicine
PROC: 3E033XZ Introduction of Vasopressor into Peripheral Vein, Percutaneous Approach (ICD-10-PCS; principal; 2020-09-02)
PROC: 04HY32Z Insertion of Monitoring Device into Lower Artery, Percutaneous Approach (ICD-10-PCS; 2020-09-02)
PROC: 4A133B1 Monitoring of Arterial Pressure, Peripheral, Percutaneous Approach (ICD-10-PCS; 2020-09-02)
PROC: 4A133J1 Monitoring of Arterial Pulse, Peripheral, Percutaneous Approach (ICD-10-PCS; 2020-09-02)
PROC: 02H633Z Insertion of Infusion Device into Right Atrium, Percutaneous Approach (ICD-10-PCS; 2020-09-02)
PROC: 3E02340 Introduction of Influenza Vaccine into Muscle, Percutaneous Approach (ICD-10-PCS; 2020-09-02)
DX: A41.9 Sepsis, unspecified organism (principal); G93.41 Metabolic encephalopathy; R65.21 Severe sepsis with septic shock; N39.0 Urinary tract infection, site not specified; C78.7 Secondary malignant neoplasm of liver and intrahepatic bile duct; Z68.44 Body mass index [BMI] 60.0-69.9, adult; C25.3 Malignant neoplasm of pancreatic duct; G35 Multiple sclerosis; Z23 Encounter for immunization; Z51.5 Encounter for palliative care; Z66 Do not resuscitate; G40.909 Epilepsy, unspecified, not intractable, without status epilepticus; M54.5 Low back pain; T68.XXXA Hypothermia, initial encounter; E86.0 Dehydration; E88.09 Other disorders of plasma-protein metabolism, not elsewhere classified; I12.9 Hypertensive chronic kidney disease with stage 1 through stage 4 chronic kidney disease, or unspecified chronic kidney disease; N18.30 Chronic kidney disease, stage 3 unspecified; D63.1 Anemia in chronic kidney disease; L89.109 Pressure ulcer of unspecified part of back, unspecified stage; M19.90 Unspecified osteoarthritis, unspecified site; G89.29 Other chronic pain; E87.6 Hypokalemia; E78.5 Hyperlipidemia, unspecified; M81.0 Age-related osteoporosis without current pathological fracture; E66.9 Obesity, unspecified; Z88.8 Allergy status to other drugs, medicaments and biological substances; Z98.890 Other specified postprocedural states; Z98.891 History of uterine scar from previous surgery; Z79.899 Other long term (current) drug therapy; X58.XXXA Exposure to other specified factors, initial encounter
CPT/HCPCS: 51702; 71045; 74176; 76705; 80048; 80053; 81001; 82947; 83605; 83690; 83880; 84145; 85025; 85027; 87040; 87086; 96361; 96376; 99285-25; A9270; C1751; J0696; J1650; J1953; J2060; J2270; J3480; J7030; J7060; J7120; P9046